=== PATIENT | female | born 1960 | race Caucasian/White ===

== ENCOUNTER 2024-06-27 11:11 | Emergency (ER) | payer BC ==
[~2024-06-27] VITALS: Ht 170.2 cm; Wt 68.0 kg
[2024-06-27] MEDS ORDERED: PROCHLORPERAZINE EDISYLATE 10 MG/2 ML VIAL ONE (11:39)
--- NOTE | 2024-06-27 11:41 | NUR ---
PT IS IN ROOM #2B. DR ROBLES EVALUATED THE PT.
[2024-06-27] MEDS: IV NORMAL SALINE 1000 ML BAG IV ONE (11:42)
[2024-06-27] MEDS: PROCHLORPERAZINE EDISYLATE 10 MG/2 ML VIAL IV ONE (11:42)
[2024-06-27] MEDS: IV NS 1000 ML 1,000 ML IV ONE ×2 (11:43→14:06)
[2024-06-27 11:44] LABS: EOSINOPHILS % (AUTO) 0.1 % (0.0-7.0); HEMATOCRIT 43.6 % (31.2-41.9); HEMOGLOBIN 14.4 g/dL (10.9-14.3); LYMPHOCYTES # (AUTO) 0.5 K/uL (0.8-4.8); LYMPHOCYTES % (AUTO) 2.1 % (20.5-51.5); MEAN CORPUSCULAR HEMOGLOBIN 30.1 uug (24.7-32.8); MEAN CORPUSCULAR HGB CONC 33 g/dL (32.3-35.6); MEAN CORPUSCULAR VOLUME 91.1 fL (75.5-95.3); MONOCYTES # (AUTO) 0.5 K/uL (0.1-1.30); MONOCYTES % (AUTO) 2.1 % (0.0-11.0); NEUTROPHILS # (AUTO) 20.6 K/uL (1.8-8.9); NEUTROPHILS % (AUTO) 95.7 % (38.5-71.5); PLATELET COUNT (AUTO) 469 K/uL (179-408); RED BLOOD CELL COUNT(AUTO) 4.79 MIL/uL (3.63-4.92); RED CELL DISTRIBUTION WIDTH 12.9 % (12.3-17.7); WHITE BLOOD COUNT (AUTO) 21.6 K/uL (3.8-11.8)
[2024-06-27 11:54] LABS: DIFFERENTIAL COMMENT 1
[2024-06-27 12:04] LABS: CALCIUM 9.7 mg/dL (8.5-10.1); POTASSIUM 3.6 mmol/L (3.5-5.1)
[2024-06-27 12:10] LABS: BILIRUBIN,DIRECT 0.1 mg/dL (0.0-0.2); BILIRUBIN,TOTAL 0.5 mg/dL (0.2-1.0); TOTAL PROTEIN, SERUM 8.6 g/dL (6.4-8.2)
[2024-06-27] MEDS ORDERED: ONDANSETRON 4 MG/2 ML VIAL ONE (13:02)
[2024-06-27] MEDS: ONDANSETRON 4 MG/2 ML VIAL IV ONE (13:05)
[2024-06-27 13:12] LABS: *BILIRUBIN,URIN NEGATIVE (NEGATIVE); *CLARITY,URINE CLEAR (CLEAR); *COLOR,URINE YELLOW (YELLOW); *KETONES,URINE TRACE (NEGATIVE); *PROTEIN,URINE TRACE (NEGATIVE); *UROBILINOGEN,URINE 0.2 E.U./dl (NORMAL); LEUKOCYTE ESTERASE ,URINE TRACE (NEGATIVE); NITRITE, URINE NEGATIVE (NEGATIVE); UGLUCOSE NEGATIVE (NEGATIVE)
[2024-06-27 13:53] LABS: *BLOOD, URINE TRACE (NEGATIVE)
[2024-06-27] MEDS ORDERED: levoFLOXacin 500 MG/D5W 100 ML ONE (13:59)
[2024-06-27] MEDS: levoFLOXacin 500 MG/D5W 100ML PIGGYBACK IV ONE (14:06)
[2024-06-27] MEDS ORDERED: LEVO500T90 PO (14:26)
[2024-06-27] MEDS ORDERED: PROC-11 PO (14:26)
[2024-06-27 15:15] LABS: BACTERIA,URINE FEW /HPF (NONE SEEN); SQUAMOUS EPITHELIAL CELL,UR FEW /HPF (NONE SEEN)
--- NOTE | 2024-06-27 15:22 | NUR ---
PT WAS D/C'd TO HOME. D/C INSTRUCTIONS GIVEN TO THE PT BY DR ROBLES.
[2024-06-27 15:24] VITALS: BP 146/78; TEMP 98.2; O2SAT 97
== END 2024-06-27 15:25 | disposition home or self-care (01) ==
LOC: ER 11:14
DX: K52.89 Other specified noninfective gastroenteritis and colitis (principal); E86.0 Dehydration; Z79.899 Other long term (current) drug therapy
CPT/HCPCS: 99284; 96365; 96375; 96361; 80076; 80048; 81001; 83735; 85025; 36415; J1956; J2405; J0780; J7040 ×3; A4606; A4663